=== PATIENT | female | born 1980 ===

== ENCOUNTER 2018-12-04 13:56 | Outpatient (CLI) | payer OTHER ==
[~2018-12-04 13:56] MED LIST: ALDOMET250 MG; ALDOMET500 MG PO; LABETALOL HCL100 MG PO; NAPR500T14 PO; NIFE60TA3; OXYC1TAB9 PO; PRENATAL TABLE1 EAC1 PO
== END 2018-12-04 14:00 | disposition home or self-care (01) ==
LOC: LAB 13:56
DX: J11.1 Influenza due to unidentified influenza virus with other respiratory manifestations (principal); J06.9 Acute upper respiratory infection, unspecified